=== PATIENT | male | born 1980 | race Two or more races ===

== ENCOUNTER 2020-03-19 15:55 | Emergency (ER) | payer BC ==
[~2020-03-19] VITALS: Ht 182.9 cm; Wt 117.9 kg
[~2020-03-19 15:55] MED LIST: BUPR1FIL3 SL; CITA40TA22 PO; fish oil; wellbutrin
--- NOTE | 2020-03-19 16:05 | NUR ---
Dr. Noguera at bedside for MSE
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
[2020-03-19] MEDS ORDERED: IV NORMAL SALINE 1000 ML BAG IV ONE (16:15)
[2020-03-19] MEDS ORDERED: ONDANSETRON 4 MG/2 ML VIAL IV ONE ×2 (16:15→18:00)
[2020-03-19] MEDS ORDERED: HYDROMORPHONE 1 MG/1 ML DISP.SYRIN IV ONE ×2 (16:15→18:00)
[2020-03-19] MEDS ORDERED: SWABABLE VALVE TRANSFER SET EA MC ONE (16:25)
[2020-03-19] MEDS ORDERED: IOHEXOL 300MG/ML 100 ML INFUS..BTL ONE (16:25)
[2020-03-19] MEDS ORDERED: IV NORMAL SALINE 250 ML IV ONE (16:25)
[2020-03-19] MEDS ORDERED: HYDROMORPHONE 2 MG/1 ML DISP.SYRIN ONE (16:28)
[2020-03-19] MEDS ORDERED: ONDANSETRON 4 MG/2 ML VIAL ONE ×2 (16:28→17:53)
--- NOTE | 2020-03-19 16:30 | NUR ---
Patient taken to CT scan
[2020-03-19 16:44] LABS: BASOPHILS # (AUTO) 0.1 K/uL (0.0-8.0); BASOPHILS % (AUTO) 0.8 % (0.0-2.0); EOSINOPHILS # (AUTO) 0.3 K/uL (0.0-0.7); EOSINOPHILS % (AUTO) 3.5 % (0.0-7.0); HEMATOCRIT 40.7 % (36.7-47.1); LYMPHOCYTES # (AUTO) 3.5 K/uL (20.0-40.0); LYMPHOCYTES % (AUTO) 36.7 % (20.5-51.5); MEAN CORPUSCULAR HEMOGLOBIN 31.4 uug (23.8-33.4); MEAN CORPUSCULAR HGB CONC 34 g/dL (32.5-36.3); MEAN CORPUSCULAR VOLUME 91.3 fL (73.0-96.2); MONOCYTES # (AUTO) 0.5 K/uL (2.0-10.0); MONOCYTES % (AUTO) 5.2 % (0.0-11.0); NEUTROPHILS # (AUTO) 5.1 K/uL (1.8-8.9); NEUTROPHILS % (AUTO) 53.8 % (38.5-71.5); PLATELET COUNT (AUTO) 275 K/uL (152-348); RED BLOOD CELL COUNT(AUTO) 4.46 MIL/uL (4.06-5.63); WHITE BLOOD COUNT (AUTO) 9.4 K/uL (3.6-10.2)
[2020-03-19 17:02] LABS: BILIRUBIN,DIRECT 0.1 mg/dL (0.0-0.2); BILIRUBIN,TOTAL 0.2 mg/dL (0.2-1.0); CREATININE 1.2 mg/dL (0.6-1.3); TOTAL PROTEIN, SERUM 7.9 g/dL (6.4-8.2)
--- NOTE | 2020-03-19 17:05 | NUR ---
Patient back from CT scan. Patient able to have conversation with eyes open. NAD noted
[2020-03-19] MEDS ORDERED: HYDROMORPHONE 1 MG/1 ML DISP.SYRIN ONE (17:53)
--- NOTE | 2020-03-19 18:15 | NUR ---
IV removed. Catheter intact and site benign. Pressure and 4x4 gauze applied to site. No bleeding noted. Patient discharged to home in stable condition. Written and verbal after care instructions given. Patient verbalizes understanding of instructions. Stressed follow up or return to ER for worsening s/s. Patient ambulated with steady gait. Denies any Dizziness / MALLOY / Blurred vision. Instructed patient not to drive.
[2020-03-19 18:21] VITALS: BP 143/69
== END 2020-03-19 18:15 | disposition home or self-care (01) ==
LOC: ER 15:58
DX: S09.90XA Unspecified injury of head, initial encounter (principal); S16.1XXA Strain of muscle, fascia and tendon at neck level, initial encounter; V49.59XA Passenger injured in collision with other motor vehicles in traffic accident, initial encounter; Y92.410 Unspecified street and highway as the place of occurrence of the external cause; F17.210 Nicotine dependence, cigarettes, uncomplicated; S20.219A Contusion of unspecified front wall of thorax, initial encounter; M54.9 Dorsalgia, unspecified; M47.9 Spondylosis, unspecified; F41.9 Anxiety disorder, unspecified; Z98.890 Other specified postprocedural states
CPT/HCPCS: 36415; 70450; 71260; 72125; 74177; 80048; 80076; 83690; 85025; 85730; 93005; 96374; 96375; 96376; 99285; J1170 ×2; J2405 ×2; Q9967; J7030; J7050